=== PATIENT | male | born 1940 | race Caucasian/White ===

== ENCOUNTER → 2017-05-03 | Outpatient (CLI) | payer MEDICARE ==
[~2017-05-03] MED LIST: MACROBID 100MG100 MG PO
== END ==
LOC: RAD 10:03
DX: I48.91 Unspecified atrial fibrillation (principal); Z51.81 Encounter for therapeutic drug level monitoring; Z79.01 Long term (current) use of anticoagulants

== ENCOUNTER → 2017-05-13 | Outpatient (CLI) | payer MEDICARE | LOC: RT 08:53 | DX: I48.91 Unspecified atrial fibrillation (principal); Z79.01 Long term (current) use of anticoagulants; Z51.81 Encounter for therapeutic drug level monitoring; I25.2 Old myocardial infarction ==

== ENCOUNTER → 2017-07-09 | Outpatient (CLI) | payer MEDICARE | LOC: RT 10:12 | DX: I48.91 Unspecified atrial fibrillation (principal) ==